=== PATIENT | male | born 1980 | race Asian ===

== ENCOUNTER 2020-03-06 21:20 | Emergency (ER) | payer SELFPAY ==
[~2020-03-06] VITALS: Ht 157.5 cm; Wt 60.0 kg
[2020-03-06] MEDS ORDERED: OLANZAPINE 10 MG/VIAL IM STA (21:28)
[2020-03-06 23:01] LABS: BASOPHILS % 0.4 % (0.0-2.0); EOSINOPHILS % 0.2 % (0.0-5.0); HEMOGLOBIN. 14.4 g/dL (14.0-18.0); LYMPHOCYTES % 8.2 % (20.0-50.0); MEAN CORPUSCULAR HEMOGLOBIN 33.1 pg (28.0-32.0); MEAN CORPUSCULAR VOLUME 98.6 fL (80.0-94.0); MEAN PLATELET VOLUME 7.1 fl (7.4-10.4); MONOCYTES % 7.7 % (2.0-8.0); NEUTROPHILS % 83.5 % (40.0-76.0); PLATELET 212 x1000/uL (130-400); RED BLOOD CELL COUNT 4.36 mill/uL (4.7-6.1); RED CELL DISTRIBUTION WIDTH 15.2 % (11.6-14.6)
[2020-03-06 23:03] LABS: CHLORIDE 108 mEq/L (98-107)
[2020-03-06 23:08] LABS: ETHANOL BLOOD 210 mg/dL
[2020-03-06] MEDS ORDERED: OLANZAPINE 10 MG/VIAL IM ONE (23:45)
[2020-03-07 08:04] LABS: OPIATES URINE SCREEN NEGATIVE (NEGATIVE)
[2020-03-07 08:05] LABS: *AMPHETAMINES SCREEN URINE NEGATIVE (NEGATIVE); *BARBITURATES SCREEN URINE NEGATIVE (NEGATIVE); *BENZODIAZEPINES SCREEN URINE NEGATIVE (NEGATIVE); *COCAINE SCREEN URINE NEGATIVE (NEGATIVE); CANNABINOID URINE SCREEN PRESUMTIVE POSITIVE (NEGATIVE); CLARITY URINE CLEAR (CLEAR); COLOR URINE YELLOW (YELLOW); KETONES URINE TRACE (NEGATIVE); LEUKOCYTE ESTERASE URINE NEGATIVE (NEGATIVE); METHADONE URINE SCREEN NEGATIVE (NEGATIVE); NITRITE URINE NEGATIVE (NEGATIVE); OCCULT BLOOD URINE NEGATIVE (NEGATIVE); PH URINE 5.5 (4.5-8.0); PHENCYCLIDINE URINE SCREEN NEGATIVE (NEGATIVE); PROTEIN URINE TRACE (NEGATIVE); SPECIFIC GRAVITY URINE 1.015 (1.005-1.030); UROBILINOGEN URINE 0.2 E.U./dL (0.2-1.0)
[2020-03-07] MEDS ORDERED: IBUPROFEN 600MG TABLET PO ONE (11:00)
[2020-03-07 12:03] VITALS: BP 130/65
== END 2020-03-07 12:11 | disposition home or self-care (01) ==
LOC: ER 21:34
DX: F10.129 Alcohol abuse with intoxication, unspecified (principal); Y90.7 Blood alcohol level of 200-239 mg/100 ml
CPT/HCPCS: 36415; 80053; 80305; 80320; 81003; 85025; 96372; 99285; J3490; G0480